=== PATIENT | female | born 1990 | race Caucasian/White ===

== ENCOUNTER 2016-06-02 03:22 | Emergency (ER) | payer OTHER ==
[~2016-06-02] VITALS: Ht 162.6 cm; Wt 65.8 kg
[2016-06-02 03:29] VITALS: BP 138/77
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
--- NOTE | 2016-06-02 03:43 | NUR ---
Pupils equal and reactive to light bilaterally. No facial droop noted. No smile deficit noted. Speech normal for patient. Patient is alert and oriented to person, place, time and event. Bilateral hand economics instructor equal. Bilateral foot push equal.
[2016-06-02 04:10] VITALS: BP 138/77
--- NOTE | 2016-06-02 04:11 | NUR ---
PATIENT BIB [facility] DEPT. PATIENT EXAMINED BY DR. MARLOW. PATIENT MEDICALLY CLEARED AND RELEASED IN CUSTODY IN STABLE CONDITION. ORIGINAL PRE-BOOK FORM GIVEN TO OFFICER STEVE THOMPSON.
== END 2016-06-02 04:11 ==
LOC: MED 03:22
DX: Z02.89 Encounter for other administrative examinations (principal); F10.129 Alcohol abuse with intoxication, unspecified; F17.200 Nicotine dependence, unspecified, uncomplicated; V47.5XXA Car driver injured in collision with fixed or stationary object in traffic accident, initial encounter; W22.11XA Striking against or struck by driver side automobile airbag, initial encounter; Y93.19 Activity, other involving water and watercraft; Y92.89 Other specified places as the place of occurrence of the external cause; Y99.8 Other external cause status